=== PATIENT | male | born 1985 | race Caucasian/White ===

== ENCOUNTER 2018-03-16 11:31 | Emergency (ER) | payer SELFPAY ==
[~2018-03-16] VITALS: Ht 177.8 cm; Wt 77.1 kg
[2018-03-16 11:31] VITALS: BP 121/86
[2018-03-16] MEDS ORDERED: Ketorolac 30mg Inj IM ONE (12:30)
[2018-03-16] MEDS ORDERED: NORCO 5-325 TA1 EACH ORAL (12:49)
[2018-03-16] MEDS ORDERED: IBUPROFEN600 MG ORAL (12:49)
[2018-03-16] MEDS: oxyCODONE HCL/Acetaminophen 5/325mg ORAL ONE ×2 (13:22→13:25)
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
--- NOTE | 2018-03-16 13:45 | Diagnostic Imaging Report ---
Indication: Pain Findings: 3 views of the right elbow were obtained. There is a severe comminuted fracture of the distal humerus several centimeters above the elbow. The elbow joint is not evaluated well but grossly intact and well aligned. IMPRESSION: Comminuted fracture distal humerus
[2018-03-16 14:10] VITALS: BP 118/78
== END 2018-03-16 14:13 | disposition home or self-care (01) ==
LOC: EDBD 11:31 → EMR 12:36
DX: S42.401A Unspecified fracture of lower end of right humerus, initial encounter for closed fracture (principal); V43.62XA Car passenger injured in collision with other type car in traffic accident, initial encounter; Y92.410 Unspecified street and highway as the place of occurrence of the external cause
CPT/HCPCS: 73070; 96372; 99283; J1885